=== PATIENT | male | born 1950 | race Caucasian/White ===

== ENCOUNTER 2016-09-28 08:46 | Inpatient (IN) | payer BC, MEDICARE ==
--- NOTE | 2016-09-15 16:50 | Rehab Joint Replacement Pre-Op ---
Rehab Joint Replacement Pre-Op - Pre-Op Visit Reviewed Items Scheduled for Post Op Visit: Yes Scheduled Post Op Visit Date: 09/28/16 Semaj Hose/Garment Measure THR - Thigh High: Yes Exercise Reviewed: Yes Stair Climbing: Yes Cane/Walker/Crutch Training: Yes Vend Equipment - Cane or Walker and OT Kit: N/A List of Venders in the Area: N/A Shower Chair Transfers: Yes Car Transfers: Yes Bed Transfers: Yes Medical History Forms Issued: N/A Functional Scale Forms Issued: N/A Additional Comments: The patient's home has 2 steps at the enterance with no railings. The patient reports he has a walker that he can borrow. The patient was informed of the need for a toilet riser seat.
[~2016-09-28 08:46] MED LIST: ACETAMINOPHEN 1000MG/100 ML PREMIX IV ONE; CEFAZOLIN 2 Gram 50 ML IVPB ONE; CELECOXIB 100 MG CAPSULE PO ONE; FAMOTIDINE 20MG TABLET PO ONE; MECLIZINE 25 MG TABLET PO ONE; METOCLOPRAMIDE 10 MG TABLET PO ONE; VANCOMYCIN HCL 1,000 MG in 0.9 % SODIUM CHLORIDE 250ML 250 ML IVPB ONE
[2016-09-28 10:12] LABS: ABO GROUP A; ANTIBODY SCREEN NEGATIVE (NEGATIVE); RH TYPE POSITIVE
[2016-09-28] MEDS ORDERED: ACETAMINOPHEN 325 MG TAB PO PRN (11:04)
[2016-09-28] MEDS ORDERED: MAGNESIUM HYDROXIDE 30 ML UDC PO PRN (11:04)
[2016-09-28] MEDS ORDERED: DIPHENHYDRAMINE HCL 25 MG CAPSULE PO PRN (11:04)
[2016-09-28] MEDS ORDERED: NALOXONE 0.4 MG/1 ML VIAL IVP PRN (11:04)
[2016-09-28] MEDS ORDERED: HYDROCODONE/APAP 10/325 TABLET PO PRN (11:04)
[2016-09-28] MEDS ORDERED: ZOLPIDEM TARTRATE 5 MG TABLET PO PRN (11:04)
[2016-09-28] MEDS ORDERED: BISACODYL 10 MG SUPP RC PRN (11:04)
[2016-09-28] MEDS ORDERED: HYDROMORPHONE HCL 1 MG/ML CPJ IM PRN ×2 (11:04)
[2016-09-28] MEDS ORDERED: KETOROLAC 30 MG/ML VIAL IVP PRN ×2 (11:04)
[2016-09-28] MEDS ORDERED: ONDANSETRON HCL IV 4 MG/2 ML VIAL IVP PRN (11:04)
[2016-09-28] MEDS ORDERED: AL HYDROX/MAG HYDROX 30ML UD PO PRN (11:04)
[2016-09-28] MEDS ORDERED: TRANEXAMIC ACID 1,000 MG/10 ML ML IV ONE (14:00)
[2016-09-28] MEDS ORDERED: MIDAZOLAM HCL 2MG/2ML VIAL IV ONE (14:00)
[2016-09-28] MEDS ORDERED: BUPIVACAINE 0.5% W/EPI MPF 30 ML VIAL IVP ONE (14:00)
[2016-09-28] MEDS ORDERED: FENTANYL PF 100MCG/2ML VIAL IV ONE (14:00)
[2016-09-28] MEDS ORDERED: DIPHENHYDRAMINE HCL IV 50 MG/ML VIAL IVP ONE (14:00)
[2016-09-28] MEDS ORDERED: PROPOFOL 10 MG/ML VIAL IV ONE (14:00)
[2016-09-28] MEDS ORDERED: LIDOCAINE 2% MDV (20MG/ML) 20ML VIAL IV ONE (14:00)
[2016-09-28] MEDS ORDERED: EPHEDRINE SULFATE 50 MG/ML ML IV ONE (14:00)
[2016-09-28] MEDS: POTASSIUM CHLORIDE/D5-0.9%NACL 20 MEQ in PREMIX D5 + NS 1000ML 1 BAG IV SCH (15:03)
--- NOTE | 2016-09-28 15:46 | Operative Note ---
DATE OF SURGERY: 09/28/2016 PREOPERATIVE DIAGNOSIS: End-stage arthrosis, right hip. POSTOPERATIVE DIAGNOSIS: End-stage arthrosis, right hip. PROCEDURE: Cementless right total hip arthroplasty using P[employer]el [employer] Nephew components, with a size 54 no-hole reflection cup, a 20 degree offset 36 mm diameter highly crosslinked liner, a size 13 high offset cementless Platina stem with a +4, 36 mm diameter Oxinium head. Staff Surgeon: Aneudy Acevedo M.D. Anesthesia: Spinal. PREPARATION: ChloraPrep. INDIVIDUAL CONSIDERATION: None. PROCEDURE: The patient was taken to the Operating Room and placed supine on the operating table. He had a successful induction of a spinal anesthetic. He was then placed on his side, right side up, and his right leg and hip were prepped and draped in the usual fashion. The patient had direct posterior approach to hip. Sharp dissection carried down through skin and subcutaneous tissue. Small veins were coagulated with a Bovie. The tensor gluteal fascia was opened along the entire length of the incision and deep retractors were placed. Sharp external rotators were identified. Piriformis fossa removed exposing the posterior capsule. A posterior capsulectomy was performed. Hip was dislocated posteriorly. His x-ray findings were not bad but he had exposed bone on the femoral head. A femora neck cut was then made about a fingerbreadth above the lesser troch using an oscillating saw. A rim capsulectomy was then performed. The large ligamentum was debrided with a Bovie. Starting with a 47 mm reamer to ream to the medial wall, I reamed to the introitus which was 53 for a 54 cup. I then slightly centrally reamed to 52. I impacted a 54 no-hole reflection cup and 20 degrees of forward flexion and 40 degrees of adduction using the extraarticular alignment guide and bony landmarks. There was solid cementless fixation. I placed the central cap screw and after irrigation I impacted a 20 degrees offset, 36 mm diameter highly crosslinked liner with the offset base leaf posterior and inferior. This gave an excellent stable acetabular construct and this was packed off. Proximal femur was delivered into the wound. Box cutting osteotome was used to remove proximal metaphyseal bone. Mid-stem reaming was done to size 13. I started feeling cortex that may be 11. I broached to a 13, dialing anteversion between 25 and 30 degrees following the natural anteversion angle of the femoral neck. There was solid cementless fixation with the broach. I calcar reamed and with a +4 high offset trial there was excellent motion and stability. I could flex him up fully up to his abdomen and he would not dislocate even internally rotated 20 to 30 degrees. At 90 degrees of flexion and 90 degrees of internal rotation I still had full stability and maximal extension and external rotation anteriorly. After irrigation I removed the broach, irrigated it out and then impacted the size 13 high offset Platina cementless stem with solid cementless fixation and solid calcar contact. I had it irrigated and dried the Kinney taper and then impacted the 36 mm diameter Oxinium head, +4, on the Kinney taper, irrigated, dried out the acetabulum and made sure there was no debris and then reduced him with similar stability. Sciatic nerve was inspected and found to be completely intact. Hemostasis was obtained with the Bovie. The tensor gluteal fascia was then closed with running #2 Quill, subcu was closed with running 0 Quill, skin was closed with running 2-0 Quill. Prior to this I did infiltrate the skin and subcutaneous tissue with 30 mL of 0.5% Marcaine with epinephrine. The patient did receive a gram of tranexamic acid preoperatively. Prior to closing the fascia I did mix a gram of tranexamic acid with 40 mL of saline and placed this deep to the fascia. The patient tolerated the procedure well. Needle and sponge counts were correct. Estimated blood loss was less than 100 mL. He was taken back to Recovery in good condition. There were no complications. CC: Dr. Bharath IRELAND
--- NOTE | 2016-09-28 16:38 | Rehab Evaluation ---
Patient Information - Patient Information Diagnosis: R hip DJD Ordered Treatment: PT Evaluate and Treat Status: Initial Evaluation Date of Surgery: 09/28/16 Past Medical/Surgical Hx: PAST MEDICAL/SURGICAL HISTORY Past Surgical History left shoulder sx;pilonidal cystectomy;T&A; vasectomy;sinus sx; colonoscopy x2; cardiac cath 2008 & 5 stents placed. PMH - Respiratory Hx Respiratory Disorders No PMH - Cardiovascular Hx Cardiovascular Disorders Yes Hx Cardiac Catheterization Yes: 2007 Hx Edema Yes: "once in awhile" Hx Hypertension Yes Hx Irregular Heartbeat Yes: SVT once Hx Coronary Artery Disease Yes: 5 stents placed Hx Coronary Stent Yes: x5 Exercise Tolerance Fair Comment: likes to walk Qd-hard to since hip pain PMH - Neuro Hx Neurological Disorders No PMH - GI Hx Gastrointestinal Disorders Yes Hx Gastroesophageal Reflux Yes Hx Ulcer Yes: 20 yrs ago Hx Weight Loss/Weight Gain Yes: 20 lbs since 2014 PMH - Hx Genitourinary Disorders No PMH - Endocrine Hx Endocrine Disorders No PMH - Musculoskeletal Hx Musculoskeletal Disorders Yes Hx Arthritis Yes: hip PMH - Psych Hx Psychiatric Problems No PMH - Hematology/Oncology Hx Hematology/Oncology No Disorders Premorbid Status: Detail (The patient was independent with ambulation without device.) Social History: Detail (The patient lives in a one story home with spouse with 2 steps at the enterance and no railings. The patient's home has a walk in shower with a shower seat. The patient has a standard walker and toilet riser seat.) Precautions: Other (THR precautions) Subjective Information - Subjective Information Per Patient (The patient had complaints of R hip pain level 2 at the highest.) Objective Data - Pain Pain Present: Yes Pain Intensity: 2 Pain Scale Used: Numeric (1 - 10) - Mental Status Patient Orientation: Oriented x3 - Visual Perception Appears within normal limits for therapeutic activities - ROM Not within normal limits (The patient's UE and L LE AROM is WNL, R LE ROM was Within THR precautions.) - Strength/Tone Not within normal limits (The patient's bilateral UE strength was 5/5, L LE strength 5/5, R LE strength was not tested, strength was functional) - Bed Mobility Independent (The patient was independent with supine to sit and scooting up in bed.) - Transfers Independent (The patient was independent with sit to and from stand tranfer and toilet transfer.) - Balance Balance Sitting: Good Balance Standing: Good - Sensation Intact - Gait Detail (The patient ambulated with standard walker WBAT on R LE with supervision for safety and assist of 1 for IV a distance of 75 feet x 1 .) Therapy Assessment - Therapy Assessment Detail (The patient was independent with mobility and completed ankle pumps and gluteal sets. Anticipate the patient will progress well.) Patient Education - Patient Education Teaching Topic: Other (Total hip precautions were reviewed.) Response: Verbalize Understanding Teaching Method: Discussion Teaching Recipient: Patient Barriers To Learning: None Problem List - Problem List Physical Therapy Problem List: Detail (1) Nonambulatory on stairs) Goals - Goals Physical Therapy Goals: 1) The patient will be independent with ambulation WBAT on R LE with assistive device distances of 150 feet plus. 2) The patient will be independent with ambulation on 2 to 3 steps WBAT on the R LE. 3) The patient will be I with all transfers and bed mobility. 4) The patient will be independent with HEP. Prognosis - Prognosis Good (Excellent to return to home) Plan - Plan Physical Therapy Plan: PT two times a day for gait training, transfer training and instruction in HEP.
[2016-09-28] MEDS: HYDROCODONE/APAP 10/325 TABLET PO PRN ×2 (16:43→20:32)
[2016-09-28] MEDS: CEFAZOLIN 2 Gram 2 GM in DEXTROSE 1 BAG IVPB SCH (17:48)
[2016-09-28] MEDS: DOCUSATE SODIUM 100 MG CAPSULE PO SCH (21:41)
[2016-09-29] MEDS: POTASSIUM CHLORIDE/D5-0.9%NACL 20 MEQ in PREMIX D5 + NS 1000ML 1 BAG IV SCH ×2 (00:24→11:33)
[2016-09-29] MEDS: HYDROMORPHONE HCL 2 MG/ML VIAL IM PRN ×2 (00:33→04:10)
[2016-09-29] MEDS: HYDROCODONE/APAP 10/325 TABLET PO PRN ×4 (01:03→13:31)
[2016-09-29] MEDS: CEFAZOLIN 2 Gram 2 GM in DEXTROSE 1 BAG IVPB SCH ×2 (02:44→09:54)
[2016-09-29 06:42] LABS: HEMATOCRIT 37.4 % (42.0-52.0); HEMOGLOBIN 12.3 gm/dl (14.0-18.0)
[2016-09-29] MEDS ORDERED: PATIENT OWN MED: OMEPRAZOLE 20 MG PO SCH (07:00)
[2016-09-29 07:11] LABS: ANION GAP 10.2 (7-16); BLOOD UREA NITROGEN 16 mg/dL (9-20); CARBON DIOXIDE 21.8 mmol/L (22-30); CREATININE 1.2 mg/dL (0.66-1.25); EST GLOMERULAR FILTRATION RATE > 60 ml/min; GLUCOSE,RANDOM 138 mg/dL (70-110)
[2016-09-29] MEDS ORDERED: KETOROLAC 30 MG/ML VIAL IVP ONE (07:46)
[2016-09-29] MEDS ORDERED: PATIENT OWN MED: LISINOPRIL 20 MG PO SCH (10:00)
[2016-09-29] MEDS ORDERED: RIVAROXABAN 10 MG TABLET PO SCH (10:00)
[2016-09-29] MEDS ORDERED: FERROUS SULFATE 325 MG TAB PO SCH (10:00)
[2016-09-29] MEDS ORDERED: PATIENT OWN MED: AMLODIPINE 10 MG PO SCH (10:00)
[2016-09-29] MEDS ORDERED: LIVALO 4 MG PO SCH (10:00)
[2016-09-29] MEDS ORDERED: PATIENT OWN MED: METOPROLOL ER 100 MG PO SCH (10:00)
[2016-09-29] MEDS ORDERED: PATIENT OWN MED: FENOFIBRATE 145 MG PO SCH (10:00)
--- NOTE | 2016-09-29 10:49 | Physical Therapy Tx Note ---
Physical Therapy Tx Note - Treatment Note Tolerated: Good (Patient just vomited up his breakfast and has been resting in bed since. Willing to try to walk and exercise though and does want to go home today. Able to walk about 100 feet with good technique with standard walker and understands hip precautions.) Physical Therapy Tx Note: Detail (Patient seen in room and resting in bed. Able to move supine to sit independently, sit to stand independently then ambulated with standard walker with assist with IV pole and carried jay along in case became ill again. Patient independent with gait though with standard walker. Full WB right LE. Reviewed exercises and hip precautions with patient and understands same, able to perform.) Physical Therapy Problem List: Detail (1) Nonambulatory on stairs) Physical Therapy Goals: 1) The patient will be independent with ambulation WBAT on R LE with assistive device distances of 150 feet plus. 2) The patient will be independent with ambulation on 2 to 3 steps WBAT on the R LE. 3) The patient will be I with all transfers and bed mobility. 4) The patient will be independent with HEP. Prognosis: Good (Patient doing well except for issues with nausea and vomiting today. Needs to be checked off on stairs yet.) Physical Therapy Plan: PT two times a day for gait training, transfer training and instruction in HEP.
[2016-09-29] MEDS: DOCUSATE SODIUM 100 MG CAPSULE PO SCH (11:28)
--- NOTE | 2016-09-29 11:48 | Rehab Evaluation ---
Patient Information - Patient Information Diagnosis: R hip DJD Ordered Treatment: OT Evaluate and Treat Status: Initial Evaluation Surgery: Yes (right JENNIFER) Date of Surgery: 09/28/16 Past Medical/Surgical Hx: PAST MEDICAL/SURGICAL HISTORY Past Surgical History left shoulder sx;pilonidal cystectomy;T&A; vasectomy;sinus sx; colonoscopy x2; cardiac cath 2008 & 5 stents placed. PMH - Respiratory Hx Respiratory Disorders No PMH - Cardiovascular Hx Cardiovascular Disorders Yes Hx Cardiac Catheterization Yes: 2007 Hx Edema Yes: "once in awhile" Hx Hypertension Yes Hx Irregular Heartbeat Yes: SVT once Hx Coronary Artery Disease Yes: 5 stents placed Hx Coronary Stent Yes: x5 Exercise Tolerance Fair Comment: likes to walk Qd-hard to since hip pain PMH - Neuro Hx Neurological Disorders No PMH - GI Hx Gastrointestinal Disorders Yes Hx Gastroesophageal Reflux Yes Hx Ulcer Yes: 20 yrs ago Hx Weight Loss/Weight Gain Yes: 20 lbs since 2014 PMH - Hx Genitourinary Disorders No PMH - Endocrine Hx Endocrine Disorders No PMH - Musculoskeletal Hx Musculoskeletal Disorders Yes Hx Arthritis Yes: hip PMH - Psych Hx Psychiatric Problems No PMH - Hematology/Oncology Hx Hematology/Oncology No Disorders Premorbid Status: Detail (Pt lives with spouse in a 1 story house with 3 steps at the entrance, no handrailings. He has a walk in shower with a seat, 1 grab bar and a hand held shower. He has a 4" riser on the toilet, a walker, crutches and cane. Pt is usually responsible for all home mgmt, meal prep, laundry and yard work but his will be home for the first week to assist with ADLs/IADLs. His son will be mowing the lawn.) Social History: Detail (Supportive .) Precautions: [place], [place], Other (THR precautions) - Time With Patient Total Time Spent With Patient (Min): 40 Treatment Procedures: Detail (OT eval low complexity) Subjective Information - Subjective Information Per Patient Objective Data - Mental Status Patient Orientation: Oriented x3 - Visual Perception Appears within normal limits for therapeutic activities - ROM Within normal limits (Imtiaz UE AROM WNL) - Strength/Tone Within normal limits (Imtiaz UE MMT WNL) - Coordination Appears within normal limits for therapeutic activities - Bed Mobility Independent (Ind with supine to sit) - Transfers Independent (Ind with sit to stand multiple times from EOB) - Balance Balance Sitting: Good Balance Standing: Good - Sensation Intact - ADL's/IADL's Detail (Pt educated re: ADL equipment for LE dressing while maintaining hip precautions. Pt able to demonstrate doffing and donning pants, underpants, sandals with cissp. Pt reports he does not usually wear socks.) Therapy Assessment - Therapy Assessment Detail (Pt demonstrates Ind with LE dressing using cissp while maintaining THR precautions.) Problem List - Problem List Physical Therapy Problem List: Detail (1) Nonambulatory on stairs) Occupational Therapy Problem List: Detail (No OT problems identified.) Goals - Goals Physical Therapy Goals: 1) The patient will be independent with ambulation WBAT on R LE with assistive device distances of 150 feet plus. 2) The patient will be independent with ambulation on 2 to 3 steps WBAT on the R LE. 3) The patient will be I with all transfers and bed mobility. 4) The patient will be independent with HEP. Occupational Therapy Goals: No OT goals identified. Prognosis - Prognosis Good Plan - Plan Physical Therapy Plan: PT two times a day for gait training, transfer training and instruction in HEP. Occupational Therapy Plan: No further OT recommended at this time. Thank you for this referral.
--- NOTE | 2016-09-29 13:53 | Physical Therapy Tx Note ---
Physical Therapy Tx Note - Treatment Note Tolerated: Good Total Time Spent With Patient: 15 Physical Therapy Tx Note: Detail ( The patient ambulated with standard walker WBAT on the R LE a distance of 50 feet x 1, the patient required verbal cues not to put walker out to far in front. The patient ambulated on stairs with cane and folded walker with supervision for safety and to steady walker. The patient's was present and was instructed in how to assist with patient using her arm or shoulder as a railing. The patient ambulated with cane 5 feet x1 with verbal cues and CG of 1. The patient's HEP was reviewed. Nursing staff was notified that patient had passed all inpatient PT skills and is discharged from inpatient PT at this time.) Physical Therapy Problem List: Detail (1) Nonambulatory on stairs) Physical Therapy Goals: 1) The patient will be independent with ambulation WBAT on R LE with assistive device distances of 150 feet plus. 2) The patient will be independent with ambulation on 2 to 3 steps WBAT on the R LE. 3) The patient will be I with all transfers and bed mobility. 4) The patient will be independent with HEP. Physical Therapy Plan: The patient was independent with ambulation on levels and stairs with supervision for safety only. The patient is discharged from inpatient PT and is to continue with Home PT upon discharge.
--- NOTE | 2016-10-08 15:34 | Discharge Summary ---
DATE OF ADMISSION: 09/28/2016 DATE OF DISCHARGE: 09/29/2016 HISTORY: The patient is an extremely delightful 66-year-old male who presents with end-stage arthrosis of his right hip. He was admitted after right total hip arthroplasty. Postoperatively he did phenomenally well. He was basically almost independent the day of surgery. The plan is to discharge him home in the care of his family. Home PT and visiting nurse has been arranged. He will be given [place] for pain and Xarelto followed by aspirin for DVT prophylaxis. He will follow up in my office in 4 weeks. These instructions were given directly to him and his discharge condition was good. FINAL DIAGNOSIS AND PRIMARY DIAGNOSIS: End-stage arthrosis of the right hip. OPERATIONS AND PROCEDURES: Cementless right total hip arthroplasty. [facility]
== END 2016-09-29 14:15 | disposition home health service (06) | DRG 470 ==
LOC: MEDSURG 08:46
PROVIDERS: ADMIT Orthopaedic Surgery; ATTEND Orthopaedic Surgery
PROC: 0SR904A Replacement of Right Hip Joint with Ceramic on Polyethylene Synthetic Substitute, Uncemented, Open Approach (ICD-10-PCS; principal; 2016-09-28 11:00)
DX: M16.11 Unilateral primary osteoarthritis, right hip (principal); I10 Essential (primary) hypertension; E78.00 Pure hypercholesterolemia, unspecified
CPT/HCPCS: 80048; 85014; 85018; 86850; 86900; 86901; 97110; 97116; 97165; 97530; J1170; J1200; J1885; J2405; J3480; J7050